=== PATIENT | male | born 1970 | race Hispanic/Latino ===

== ENCOUNTER 2020-01-01 13:50 | Emergency (ER) | payer OTHER, MEDICARE, SELFPAY ==
[2020-01-01 13:55] VITALS: BP 136/95; PULSE 97; RESP 18; TEMP 36.9; O2SAT 98
[2020-01-01 14:09] LABS: Glucose Point of Care 239 (65-105)
--- NOTE | 2020-01-01 14:35 | ED.RECABL ---
HPI - Recheck/Abnormal Lab/Rx General Chief Complaint: Recheck/Abnormal Lab/Rx Stated Complaint: high blood sugar Time Seen by Provider: 01/01/20 13:59 History of Present Illness HPI narrative: Patient is a 49-year-old male who presents the ER with concerns for hyperglycemia. Reports he took his blood sugar reading this morning and it was greater than 300. This is the first time he is taken a blood glucose level in the last 2 months. Reports she is noted she has been drinking more Crystal light than typical and was concerned maybe his blood sugars were high. He states he has an artificial sweetener in it. Reports he has been urinating more frequently. No additional complaints. Has not followed up with his primary care doctor due to recent COVID pandemic. Related Data Home Medications Medication Instructions Recorded Confirmed carbamazepine 200 mg PO Q12H 06/20/19 Allergies Allergy/AdvReac Type Severity Reaction Status Date / Time tadalafil Allergy Unknown Other Verified 01/01/20 13:58 Review of Systems Review of Systems: All systems reviewed & are unremarkable except as noted in HPI and below Genitourinary: Genitourinary: Reports urinary frequency PMFSH Past Medical History Medical History (Updated 01/01/20 @ 15:29 by Edward Coronado MD) Diabetes Dyslipidemia Epilepsy GERD (gastroesophageal reflux disease) Hypertension Hypothyroidism Pacemaker Surgical History Surgical History (Updated 06/20/19 @ 18:34 by Dionna Shi PA-C) S/P right rotator cuff repair Family History Family History (Updated 01/13/19 @ 14:45 by DOCTOR UNKNOWN) Mother Family history of diabetes mellitus in first degree relative Diabetes mellitus Sibling Diabetes mellitus Other Hypertension Social History Social History Smoking status: Never smoker Alcohol intake: current Gender identity (if verbalized by the patient): Male Exam Narrative: Exam Narrative: GENERAL: Well-appearing, obese, and in no acute distress. HEAD: Normocephalic, atraumatic. CHEST: Clear to auscultation. No respiratory distress. HEART: Regular rate and rhythm. Normal peripheral pulses. ABDOMEN: Soft, nontender, nondistended. EXTREMITIES: Normal range of motion. No edema. SKIN: Warm, dry, no rash. NEURO: N Alert and oriented x3. PSYCH: Normal mood and affect. Course Course Emergency Course: Patient informed of results. Discussed case with Dr. Hurtado. Would recommend increasing patient's metformin by 500 mg for the next couple of days and then increasing it to 1000 mg twice daily after that. I discussed the plan with the patient has verbalized understanding. Vital Signs Vital signs: Vital Signs Temperature 98.5 F 01/01/20 13:55 Pulse Rate 97 01/01/20 13:55 Respiratory Rate 18 01/01/20 13:55 Blood Pressure 136/95 H 01/01/20 13:55 Pulse Oximetry 98 01/01/20 13:55 Temperature 98.5 F 01/01/20 13:55 Pulse Rate 97 01/01/20 13:55 Respiratory Rate 18 01/01/20 13:55 Blood Pressure 136/95 H 01/01/20 13:55 Pulse Oximetry 98 01/01/20 13:55 MDM - Recheck/Abnormal Lab/Rx Lab Data Result diagrams: 01/01/20 14:35 01/01/20 14:35 Labs: Lab Results 01/01/20 01/01/20 01/01/20 Range/Units 14:08 14:35 14:35 WBC 6.8 (4.5-10.0) K/mm3 RBC 4.32 L (4.6-6.20) M/mm3 Hgb 14.1 (14.0-18.0) g/dL Hct 39.4 L (42.0-52.0) % MCV 91.2 (80-100) fl MCH 32.6 (26-34) pg MCHC 35.8 (32-36) g/dl RDW 11.9 (11.5-14.5) % Plt Count 317 (150-375) k/mm3 MPV 8.9 (7.4-10.4) fl Immature Gran % (Auto) 0.7 H (0-0.5) % Neut % (Auto) 61.6 (45.5-73.1) % Lymph % (Auto) 27.3 (18.3-44.2) % Kinney % (Auto) 9.0 H (2.6-8.5) % Eos % (Auto) 1.0 (0-4.4) % Baso % (Auto) 0.4 (0.2-1.2) % Lymph # (Auto) 1.84 (0.9-3.2) K/mm3 Kinney # (Auto) 0.6 (0.1-0.6) K/mm3 Eos # (Auto) 0.1 (0-0.3) K/mm3 Baso # (Auto) 0.0 (
[2020-01-01 14:45] LABS: Basophils Percent Auto 0.4 % (0.2-1.2); Eosinophils Absolute Auto 0.1 K/mm3 (0-0.3); Hematocrit 39.4 % (42.0-52.0); Hemoglobin 14.1 g/dL (14.0-18.0); Immature Granulocyte Absolute 0.05 K/mm3 (0.00-0.031); Immature Granulocyte Percent A 0.7 % (0-0.5); Lymphocytes Absolute Auto 1.84 K/mm3 (0.9-3.2); Lymphocytes Percent Auto 27.3 % (18.3-44.2); Mean Corpuscular HGB Conc 35.8 g/dl (32-36); Mean Corpuscular Hemoglobin 32.6 pg (26-34); Mean Corpuscular Volume 91.2 fl (80-100); Mean Platelet Volume 8.9 fl (7.4-10.4); Monocytes Absolute Auto 0.6 K/mm3 (0.1-0.6); Neutrophils Absolute Auto 4.2 K/mm3 (1.3-6.7); Neutrophils Percent Auto 61.6 % (45.5-73.1); Platelet Count Result 317 k/mm3 (150-375); Red Blood Count 4.32 M/mm3 (4.6-6.20); Red Cell Distribution Width 11.9 % (11.5-14.5); White Blood Count 6.8 K/mm3 (4.5-10.0)
[2020-01-01 14:58] LABS: Blood Urea Nitrogen 20 mg/dL (9-20); Calcium 9.5 mg/dL (8.4-10.2); Carbon Dioxide 26 mmol/L (22-30); Chloride 101 mmol/L (98-107); Estimated CRCL calculation 141 ml/min; Estimated Glomerular Filt Rate > 60; Glucose 280 mg/dL (75-110); Sodium 136 mmol/L (137-145)
[2020-01-01 15:09] LABS: Hemoglobin A1C 9.9 % (<5.7)
[2020-01-01 15:56] VITALS: BP 139/87; PULSE 93; RESP 16; TEMP 36.4; O2SAT 99
== END 2020-01-01 15:57 | disposition home or self-care (01) ==
PROVIDERS: Emergency Provider Emergency Medicine; PCP Family Medicine
DX: E11.65 Type 2 diabetes mellitus with hyperglycemia (principal); G40.909 Epilepsy, unspecified, not intractable, without status epilepticus; E78.5 Hyperlipidemia, unspecified; K21.9 Gastro-esophageal reflux disease without esophagitis; I10 Essential (primary) hypertension; E03.9 Hypothyroidism, unspecified; Z95.0 Presence of cardiac pacemaker; Z79.84 Long term (current) use of oral hypoglycemic drugs
CPT/HCPCS: 36415; 80048; 82948; 83036; 85025; 99283

== ENCOUNTER 2020-05-25 09:30 | Outpatient (RCR) | payer OTHER, MEDICARE, SELFPAY ==
[2020-03-18 15:08] VITALS: BMI 37.5
[2020-05-25 09:34] VITALS: BMI 37.3
[2020-05-25 09:35] VITALS: BMI 37.3
== END 2020-06-07 09:38 | disposition home or self-care (01) ==
LOC: ANHDMC 09:30
PROVIDERS: PCP Family Medicine; Visit Provider Family Medicine
DX: E11.65 Type 2 diabetes mellitus with hyperglycemia (principal); Z71.3 Dietary counseling and surveillance; Z71.89 Other specified counseling
CPT/HCPCS: 97802; 97803; G0108

== ENCOUNTER 2020-08-12 11:00 | Outpatient (RCR) | payer OTHER, MEDICARE, SELFPAY ==
[2020-07-01 10:59] VITALS: BMI 37.8
[2020-07-01 11:00] VITALS: BMI 37.8
== END 2020-09-20 09:13 | disposition home or self-care (01) ==
LOC: ANHDMC 11:00
PROVIDERS: PCP Family Medicine; Visit Provider Family Medicine
DX: E11.65 Type 2 diabetes mellitus with hyperglycemia (principal); Z71.3 Dietary counseling and surveillance; Z71.89 Other specified counseling
CPT/HCPCS: 97803; G0108

== ENCOUNTER → 2020-09-14 00:19 | Outpatient (CLI) | payer OTHER, MEDICARE, SELFPAY ==
[2020-09-14 21:18] LABS: SARS-CoV-2 RNA PCR Negative
== END ==
PROVIDERS: PCP Family Medicine; Visit Provider Internal Medicine Gastroenterology
DX: Z01.812 Encounter for preprocedural laboratory examination (principal); Z20.822 Contact with and (suspected) exposure to COVID-19
CPT/HCPCS: C9803; U0003; U0005

== ENCOUNTER 2020-09-17 00:54 | Day surgery (SDC) | payer OTHER, MEDICARE, SELFPAY ==
[2020-08-26 15:39] VITALS: BMI 37.3
[2020-09-17 06:47] VITALS: BP 145/98; PULSE 87; RESP 18; TEMP 36.7; O2SAT 96
[2020-09-17] MEDS: LACTATED RINGERS 1,000 ML 150 ML IV CONT (07:03)
[2020-09-17 07:09] LABS: Glucose Point of Care 118 (65-105)
--- NOTE | 2020-09-17 08:04 | WPDANESEPPF ---
Anes - Initial Pre Proc Eval Procedure: Operation Date: 09/17/20 08:00 Proposed Procedures p Screening Colonoscopy - Suleiman Gregorio MD Date/Time: 09/17/20 08:04 Surgeon: Suleiman Gregorio MD Pre Op Diagnosis: Neoplasm Screening Patient Data Age: 50 Gender: M Height: 5 ft 10 in Weight: 119 kg Last Vital Signs Temp 36.7 C 09/17/20 06:47 Pulse 87 09/17/20 06:47 Resp 18 09/17/20 06:47 BP 145/98 H 09/17/20 06:47 Pulse Ox 96 09/17/20 06:47 Allergies Allergy/AdvReac Type Severity Reaction Status Date / Time No Known Allergies Allergy Verified 09/17/20 06:46 Home Medications Medication Instructions Recorded Confirmed Type carbamazepine 600 mg PO Q12H 06/20/19 08/26/20 History metformin 500 mg tablet 1,000 mg PO BID #120 tablet 01/14/20 08/26/20 Rx fenofibrate 160 mg tablet See Rx Instructions .ROUTE 04/12/20 09/17/20 Rx .COMPLEX #90 tablet losartan 100 mg tablet See Rx Instructions .ROUTE 04/12/20 09/17/20 Rx .COMPLEX #90 tablet omeprazole 40 mg capsule,delayed See Rx Instructions .ROUTE 04/12/20 09/17/20 Rx release .COMPLEX #90 cap blood sugar diagnostic #100 each 04/21/20 08/19/20 Rx dapagliflozin 10 mg tablet 10 mg PO QAM #30 tablet 06/23/20 09/17/20 Rx levothyroxine 88 mcg tablet 88 mcg PO DAILY #90 tablet 08/09/20 08/26/20 Rx hydrochlorothiazide 12.5 mg tablet 12.5 mg PO DAILY #30 tablet 08/12/20 09/17/20 Rx sildenafil 100 mg tablet 100 mg PO DAILY PRN #30 tablet 08/12/20 08/26/20 Rx sodium,potassium,mag sulfates See Rx Instructions .ROUTE 08/25/20 Rx [Suprep Bowel Prep Kit] .COMPLEX #1 ml lancets 33 gauge #100 each 09/02/20 Rx atorvastatin [Lipitor] 10 mg PO HS 09/17/20 08/26/20 History Laboratory Tests 09/17/20 07:03 POC Capillary Glucose 118 mg/dl H mg/dl (65-105) Patient hx anesthesia problems: none Family hx anesthesia problems: none PMFSH Past Medical History Medical History Diabetes Dyslipidemia Epilepsy GERD (gastroesophageal reflux disease) Hypertension Hypothyroidism Pacemaker Surgical History Surgical History S/P right rotator cuff repair Family History Family History Mother Family history of diabetes mellitus in first degree relative Diabetes mellitus Sibling Diabetes mellitus Other Hypertension Social History Social History Social History: Smoking status: Never smoker Second hand tobacco smoke exposure: No Alcohol intake: never Substance use: never Substance use type: does not use Living arrangements: with family Gender identity (if verbalized by the patient): Male Spiritual care concerns: No Anes - Eval Final PreProcedure Day of Procedure 09/17/20 08:04 Patient weight: obese Heart: regular rate and rhythm Lungs: clear to auscultation Airway: Mallampati scale class II Neurological: alert and oriented Last oral intake: >/= 8 hours ASA classification: III Emergent: no Anesthetic plan: proceed Anesthesia type and monitoring: general GIVS and standard monitoring Informed Consent: The patient's anesthetic plan and its attendant risks and benefits were discussed with the patient/family/POA. Questions were solicited and answers provided to the satisfaction of the patient/family/POA.
--- NOTE | 2020-09-17 08:27 | PM.HPGS ---
History of Present Illness History of Present Illness Consent: Risks, benefits, and alternatives have been discussed and questions answered. Patient agrees to proceed with procedure. Chief complaint: Neoplasm Screening Narrative: Navdeep Guzman is a 50 year old male here for first screening colonoscopy Review of Systems Constitutional: Constitutional: Denies headache(s) and Denies weakness Eyes: Eyes: Denies blurry vision ENT: Reports Normal hearing present, Denies headache(s) and Denies neck pain Cardiovascular: Cardiovascular: Denies chest pain and Denies dyspnea Respiratory: Respiratory: Denies dyspnea Gastrointestinal: Gastrointestinal: Reports no additional gastrointestinal complaints Genitourinary: Genitourinary: Denies dysuria Musculoskeletal: Musculoskeletal: Denies neck pain Integumentary/Breasts: Skin/Breast: Denies dry skin Neurologic: Reports Normal hearing present, Denies headache(s) and Denies weakness Psychiatric: Psychiatric: Denies anxiety Endocrine: Endocrine: Denies change in body appearance Hematologic/Lymphatic: Hematologic/Lymphatic: Denies easy bleeding Allergic/Immunologic: Allergic/Immunologic: Denies urticaria PMFSH Past Medical History Medical History Diabetes Dyslipidemia Epilepsy GERD (gastroesophageal reflux disease) Hypertension Hypothyroidism Pacemaker Surgical History Surgical History S/P right rotator cuff repair Family History Family History Mother Family history of diabetes mellitus in first degree relative Diabetes mellitus Sibling Diabetes mellitus Other Hypertension Social History Social History Social History: Smoking status: Never smoker Second hand tobacco smoke exposure: No Alcohol intake: never Substance use: never Substance use type: does not use Living arrangements: with family Gender identity (if verbalized by the patient): Male Spiritual care concerns: No Meds Home Medications and Allergies Home Medications Medication Instructions Recorded Confirmed Type carbamazepine 600 mg PO Q12H 06/20/19 08/26/20 History metformin 500 mg tablet 1,000 mg PO BID #120 tablet 01/14/20 08/26/20 Rx fenofibrate 160 mg tablet See Rx Instructions .ROUTE 04/12/20 09/17/20 Rx .COMPLEX #90 tablet losartan 100 mg tablet See Rx Instructions .ROUTE 04/12/20 09/17/20 Rx .COMPLEX #90 tablet omeprazole 40 mg capsule,delayed See Rx Instructions .ROUTE 04/12/20 09/17/20 Rx release .COMPLEX #90 cap blood sugar diagnostic #100 each 04/21/20 08/19/20 Rx dapagliflozin 10 mg tablet 10 mg PO QAM #30 tablet 06/23/20 09/17/20 Rx levothyroxine 88 mcg tablet 88 mcg PO DAILY #90 tablet 08/09/20 08/26/20 Rx hydrochlorothiazide 12.5 mg tablet 12.5 mg PO DAILY #30 tablet 08/12/20 09/17/20 Rx sildenafil 100 mg tablet 100 mg PO DAILY PRN #30 tablet 08/12/20 08/26/20 Rx sodium,potassium,mag sulfates See Rx Instructions .ROUTE 08/25/20 Rx [Suprep Bowel Prep Kit] .COMPLEX #1 ml lancets 33 gauge #100 each 09/02/20 Rx atorvastatin [Lipitor] 10 mg PO HS 09/17/20 08/26/20 History Allergies Allergy/AdvReac Type Severity Reaction Status Date / Time No Known Allergies Allergy Verified 09/17/20 06:46 Vital Signs Vital Signs - 24 hr 09/17/20 06:47 Temperature 98.1 F Pulse Rate 87 Respiratory Rate 18 Blood Pressure 145/98 H Pulse Oximetry 96 Exam Const: General: comfortable and no acute distress HENMT: General nose exam: Normal nares present Eyes: General: appearance normal, both eyes and all related structures Neck: Neck: no JVD Resp: Auscultation: clear to auscultation bilaterally Cardio: Rate: regular rate Rhythm: regular rhythm GI: Inspection: non-distended GI Palp: Yes Soft to palpation S
[2020-09-17 08:46] VITALS: BP 151/86; PULSE 93; RESP 20; O2SAT 92
[2020-09-17 08:56] VITALS: BP 131/85; PULSE 89; RESP 25; O2SAT 95
[2020-09-17 09:06] VITALS: BP 136/87; PULSE 91; RESP 18; O2SAT 96
== END 2020-09-17 09:47 | disposition home or self-care (01) ==
PROVIDERS: PCP Family Medicine; Visit Provider Internal Medicine Gastroenterology
PROC: 0DJD8ZZ Inspection of Lower Intestinal Tract, Via Natural or Artificial Opening Endoscopic (ICD-10-PCS; CPT 45378; principal; 2020-09-17 08:00)
DX: Z12.11 Encounter for screening for malignant neoplasm of colon (principal); D12.4 Benign neoplasm of descending colon; I10 Essential (primary) hypertension; E11.9 Type 2 diabetes mellitus without complications; E78.5 Hyperlipidemia, unspecified; E03.9 Hypothyroidism, unspecified; K64.8 Other hemorrhoids; K21.9 Gastro-esophageal reflux disease without esophagitis; G40.909 Epilepsy, unspecified, not intractable, without status epilepticus; Z95.0 Presence of cardiac pacemaker
CPT/HCPCS: 45380; 82948; 88305; C9803; J2704; J7120; U0003; U0005

== ENCOUNTER 2021-05-11 14:14 | Outpatient (CLI) | payer OTHER, MEDICARE, SELFPAY | END 2021-05-11 14:15 | disposition home or self-care (01) | LOC: ANHAUDIO 14:16 | PROVIDERS: PCP Family Medicine; Visit Provider Family Medicine | DX: H91.90 Unspecified hearing loss, unspecified ear (principal) | CPT/HCPCS: 99199 ==

== ENCOUNTER 2021-07-27 16:09 | Outpatient (CLI) | payer OTHER, MEDICARE, SELFPAY ==
--- NOTE | ~2021-07-27 | CT_ITS ---
EXAMINATION: CT brain wo con DATE: 07/27/2021 16:29 INDICATION: Dizziness. Unsteady gait. Weakness. TECHNIQUE: Computed tomography (CT) of the head was performed without intravenous contrast. Sagittal and coronal reconstructions were performed. The mA was adjusted according to patient size. Iterative reconstruction technique was employed. The dose-length product was 681.00 mGy-cm. COMPARISON: None FINDINGS: No acute intracranial hemorrhage, acute infarction or abnormal extra axial fluid collection. Ventricl es are normal and symmetric. No mass/mass effect. Mild mucosal thickening the right maxillary sinus. The orbits and mastoid air cells are normal. IMPRESSION: 1. Normal brain. No acute intracranial process. Reviewed, dictated and finalized at location A. CER MACHINE
== END 2021-07-27 16:10 | disposition home or self-care (01) ==
LOC: ANHIMG 16:10
PROVIDERS: PCP Family Medicine; Visit Provider Nurse Practitioner Family
DX: R26.81 Unsteadiness on feet (principal); R42 Dizziness and giddiness; R53.1 Weakness
CPT/HCPCS: 70450

== ENCOUNTER → 2022-06-19 13:13 | Outpatient (CLI) | payer OTHER, MEDICARE, SELFPAY ==
--- NOTE | ~2022-06-19 | XR_ITS ---
XR hip RT 2V w AP pelvis 06/19/2022 13:29 Indication: Right hip pain for 2-3 months Procedure: AP pelvis and 2 views right hip Comparison: No prior studies for comparison. Findings: There are surgical changes at the lower lumbar spine. Pelvic rings are intact. No acute fra cture or traumatic malalignment. There is anatomic alignment of the hips. No significant joint space narrowing. Impression: 1: No acute abnormality of the right hip. Reviewed, dictated and finalized at location B. S SCIENCE ENGINEER Impression: 1: No acute abnormality of the right hip.
== END ==
PROVIDERS: PCP Family Medicine; Visit Provider Family Medicine
DX: M25.551 Pain in right hip (principal)
CPT/HCPCS: 73502

== ENCOUNTER 2022-07-24 10:26 | Emergency (ER) | payer OTHER, MEDICARE, SELFPAY ==
--- NOTE | ~2022-07-24 | US_ITS ---
EXAMINATION: US scrotum doppler DATE: 07/24/2022 12:23 INDICATION: Right testicular pain and swelling TECHNIQUE: Testicular sonogram utilizing grayscale and Doppler COMPARISON: None. FINDINGS: The right testis measures 3.5 x 1.9 x 2.3 cm. The left testis measures 3.9 x 2.0 x 2.2 cm. Symmetric normal grayscale appearance to both testes. There is normal vascular flow to both testes. The right e pididymis is normal with normal vascular flow. The left epididymis is normal with normal vascular rolanda w. There is no varicocele or hydrocele. IMPRESSION: 1. Normal scrotal ultrasound. Reviewed, dictated and finalized at location A. DATION ARCHITECT
--- NOTE | ~2022-07-24 | CT_ITS ---
EXAMINATION: CT abdomen pelvis w con : 07/24/2022 13:03 INDICATION: Severe right inguinal pain TECHNIQUE: Computed tomography (CT) of the abdomen and pelvis was performed with 100 mL Omnipaque-350 intravenous contrast. Automated exposure control and iterative reconstruction technique were employe d. The dose-length product was 1595.63 mGy-cm. COMPARISON: None FINDINGS: Again seen is mild subpleural atelectasis/scarring at the dependent right lower lobe. Heart size is n ormal. Right atrial appendage and apex of the right ventricle. No pericardial or pleural effusion. Mi ld bilateral gynecomastia. Liver, gallbladder, spleen, pancreas, bilateral adrenal glands and right k idney are normal. 11 mm and 8 mm lesions, the former exophytic, the lower pole of the left kidney wit h greater than simple fluid attenuation which could represent either proteinaceous/hemorrhagic cysts or solid enhancing neoplasms. The former is without significant interval change since the prior study , the latter is increased in size from approximately 3 mm. There are few sigmoid diverticula without adjacent inflammatory change to suggest diverticulitis. Small bowel and appendix are normal. Small fa t-containing umbilical hernia. Asymmetric mild increased fat within the distal left inguinal canal wi thout definitive herniation at the internal os and this likely related to body habitus. No right ingu inal hernia. Bladder is normal. Prostate is unremarkable. Combined instrumented anterior and posterio r spinal fusion at L3-S1 with interbody bone graft cages and bilateral vertical nandini and pedicle screw fixations. Moderate disc height loss at L2-L3. There is hypertrophic and mild cystic changes along t he bilateral anterosuperior femoral head neck junctions which can be seen in the setting of cam-type femoral acetabular impingement. IMPRESSION: 1. No right inguinal hernia or acute intra-abdominal/pelvic process. 2. A couple small indeterminate lesions at the lower pole of the left kidney measuring 8 mm and 11 mm which corrects and proteinaceous/hemorrhagic cysts or solid enhancing neoplasm including renal cell carcinoma. Would recommend follow-up pre and postcontrast MRI or CT. 3. Small fat-containing umbilical hernia. Reviewed, dictated and finalized at location A. RVISOR PRE WAVE IMPRESSION: 1. No right inguinal hernia or acute intra-abdominal/pelvic process. 2. A couple small indeterminate lesions at the lower pole of the left kidney me asuring 8 mm and 11 mm which corrects and proteinaceous/hemorrhagic cysts or so lid enhancing neoplasm including renal cell carcinoma. Would recommend follow-u p pre and postcontrast MRI or CT. 3. Small fat-containing umbilical hernia.
[2022-07-24 10:30] VITALS: BP 163/88; PULSE 101; RESP 18; TEMP 36.4; O2SAT 97
--- NOTE | 2022-07-24 10:46 | ED.GENADULT ---
HPI - General Adult General Chief complaint: Unspecified Stated complaint: pain in groin Time Seen by Provider: 07/24/22 10:36 History of Present Illness HPI narrative: Patient is a 52-year-old male here for evaluation of right testicular pain over the past day. Patient states he will have waves of severe pain in his right testicle/groin. The pain is worse with certain positions and does ease up when he is at rest. denies nausea, vomiting, fevers, chills, palpated masses or rashes. Attempted Aleve yesterday without relief of his symptoms. Related Data Home Medications Medication Instructions Recorded Confirmed carbamazepine 200 mg tablet 600 mg PO Q12H 06/20/19 06/13/22 Allergies Allergy/AdvReac Type Severity Reaction Status Date / Time No Known Allergies Allergy Verified 06/13/22 10:11 Review of Systems Review of Systems: Gen.: Denies fevers or chills Eyes: Denies eye pain or visual change ENT: Denies congestion Respiratory: Denies shortness of breath or cough CV: Denies chest pain or palpitations GI: Denies abdominal pain nausea, emesis or diarrhea reports right testicle pain. Denies burning, urgency, frequency or hematuria Musculoskeletal: Denies back pain or muscle pain Neuro: Denies numbness, tingling, weakness or focal weakness Skin: Denies rash Except as documented, all other systems reviewed and negative [facility] Past Medical History Medical History (Updated 07/24/22 @ 13:59 by Dionna Vora PA-C) Diabetes Dyslipidemia Epilepsy GERD (gastroesophageal reflux disease) Hypertension Hypothyroidism Pacemaker Surgical History Surgical History S/P right rotator cuff repair Family History Family History Mother Family history of diabetes mellitus in first degree relative Diabetes mellitus Sibling Diabetes mellitus Other Hypertension Social History Social History Social History: Smoking status: Never smoker Second hand tobacco smoke exposure: No Alcohol intake: never Alcohol use details: occasionally Substance use: never Substance use type: does not use Gender identity (if verbalized by the patient): Male Sexual Orientation (if Verbalized by the Patient): Straight or Heterosexual Spiritual care concerns: No Exam Narrative: APPEARANCE: Well appearing, no pain in distress, well-nourished. Head: Normocephalic and atraumatic. EYES: PERRLA/EOMI, conjunctivae clear NOSE: No nasal drainage EARS: External ear normal in appearance THROAT: Oropharynx is clear. Mucous membranes are moist. NECK: Supple. No adenopathy, no masses. RESPIRATORY: Airway patent, respirations nonlabored. Clear to auscultation bilaterally, no rales, rhonchi, wheezing. CARDIOVASCULAR: Regular rate and rhythm without murmurs, rubs, or gallops. : Tender to palpation around right epididymis. No palpable masses. Normal external genitalia. No rashes to testicles or groin. ABDOMINAL: Normoactive bowel sounds. Soft, nontender, nondistended. No rebound tenderness or guarding. MUSCULOSKELETAL: Extremities are warm and well-perfused. Moves all extremities well. No edema. NEURO: Normal speech. No focal neurologic deficits. SKIN: Skin is warm and dry. No rashes. PSYCHIATRIC: Normal affect/mood. Course Vital Signs Vital signs: Vital Signs Temperature 97.6 F 07/24/22 10:30 Pulse Rate 101 H 07/24/22 10:30 Respiratory Rate 18 07/24/22 10:30 Blood Pressure 163/88 H 07/24/22 10:30 Pulse Oximetry 97 07/24/22 10:30 Oxygen Delivery Room Air 07/24/22 10:30 Temperature 97.6 F 07/24/22 10:30 Pulse Rate 94 07/24/22 13:12 Respiratory Rate 20 07/24/22 13:12 Blood Pressure 138/88 07/24/22 13:12 Pulse Oximetry 98 07/24/22 13:12 Oxygen Delivery Room Air 07/24/22 10:30 Medical Decisio
[2022-07-24] MEDS: KETOROLAC 15 MG/ML VIAL (*BKC) IV PUSH (11:37)
[2022-07-24 12:28] LABS: Basophils Percent Auto 0.4 % (0.2-1.2); Eosinophils Absolute Auto 0.1 K/mm3 (0-0.3); Eosinophils Percent Auto 1.1 % (0-4.4); Hematocrit 41.6 % (42.0-52.0); Hemoglobin 14.6 g/dL (14.0-18.0); Immature Granulocyte Absolute 0.06 K/mm3 (0.00-0.031); Immature Granulocyte Percent A 0.7 % (0-0.5); Lymphocytes Absolute Auto 2.41 K/mm3 (0.9-3.2); Lymphocytes Percent Auto 26.2 % (18.3-44.2); Mean Corpuscular HGB Conc 35.1 g/dl (32-36); Mean Corpuscular Hemoglobin 33.1 pg (26-34); Mean Corpuscular Volume 94.3 fl (80-100); Mean Platelet Volume 7.9 fl (7.4-10.4); Monocytes Absolute Auto 0.9 K/mm3 (0.1-0.6); Monocytes Percent Auto 9.7 % (2.6-8.5); Neutrophils Absolute Auto 5.7 K/mm3 (1.3-6.7); Neutrophils Percent Auto 61.9 % (45.5-73.1); Platelet Count Result 322 k/mm3 (150-375); Red Blood Count 4.41 M/mm3 (4.6-6.20); Red Cell Distribution Width 11.9 % (11.5-14.5); White Blood Count 9.2 K/mm3 (4.5-10.0)
[2022-07-24 12:38] LABS: Alanine Aminotransferase 36 U/L (6-50); Albumin Level 4.5 g/dL (3.5-5.1); Alkaline Phosphatase 109 U/L (38-126); Anion Gap 9 mmol/L (8-16); Aspartate Amino Transferase 36 U/L (17-59); Bilirubin,Total 0.4 mg/dL (0.2-1.3); Blood Urea Nitrogen 20 mg/dL (9-20); Calcium 8.9 mg/dL (8.4-10.2); Carbon Dioxide 26 mmol/L (22-30); Chloride 105 mmol/L (98-107); Estimated CRCL calculation 156 ml/min; Estimated Glomerular Filt Rate > 60; Glucose 99 mg/dL (65-110); Potassium 3.8 mmol/L (3.4-5.0); Sodium 140 mmol/L (137-145)
[2022-07-24] MEDS: MORPHINE SULFATE (*CRX) 4 MG/ML INJ IV PUSH (13:09)
[2022-07-24 13:12] VITALS: BP 138/88; PULSE 94; RESP 20; O2SAT 98
== END 2022-07-24 14:13 | disposition home or self-care (01) ==
PROVIDERS: Emergency Provider Physician Assistant; PCP Family Medicine
DX: R10.31 Right lower quadrant pain (principal); E11.9 Type 2 diabetes mellitus without complications; E78.5 Hyperlipidemia, unspecified; G40.909 Epilepsy, unspecified, not intractable, without status epilepticus; K21.9 Gastro-esophageal reflux disease without esophagitis; I10 Essential (primary) hypertension; E03.9 Hypothyroidism, unspecified; Z95.0 Presence of cardiac pacemaker; N28.9 Disorder of kidney and ureter, unspecified; K42.9 Umbilical hernia without obstruction or gangrene; Z79.82 Long term (current) use of aspirin; Z79.84 Long term (current) use of oral hypoglycemic drugs
CPT/HCPCS: 36415; 74177; 76870; 80053; 85025; 93976; 96374; 96375; 99284; J1885; J2270; Q9967

== ENCOUNTER 2022-08-02 06:36 | Outpatient (CLI) | payer OTHER, MEDICARE, SELFPAY ==
--- NOTE | ~2022-08-02 | CT_ITS ---
CT Abdomen with contrast. History: Left renal mass. Spiral CT of the abdomen was performed prior to and following administration of intravenous contrast. 100 cc of Omnipaque 350 was administered intravenously without complication. Dose reduction techniqu e was used on this scan by utilizing automated exposure control and iterative reconstruction techniqu e. The dose-length product (DLP) was 1914.58 mGy-cm. COMPARISON: 07/24/2022, 01/10/2019 Findings: Scans through the lung bases demonstrate mild atelectatic change. The liver, spleen, pancreas, gallbladder, adrenals and right kidney are within normal limits. Several subcentimeter left renal lesions are present, with apparent low density. No evidence of aortic aneur ysm. No lymphadenopathy is seen. Visualized bowel loops are unremarkable. No ascites. Impression: Low-density/nonenhancing left renal lesions, most compatible with benign findings. Reviewed, dictated and finalized at [facility]. TERIA FOOD SERVER Impression: Low-density/nonenhancing left renal lesions, most compatible with benign findin gs.
== END 2022-08-02 06:37 | disposition home or self-care (01) ==
LOC: ANHIMG 06:41
PROVIDERS: PCP Family Medicine; Visit Provider Physician Assistant
DX: N28.89 Other specified disorders of kidney and ureter (principal)
CPT/HCPCS: 74170; Q9967

== ENCOUNTER 2022-11-22 13:28 | Outpatient (CLI) | payer OTHER, MEDICARE, SELFPAY ==
--- NOTE | ~2022-11-22 | US_ITS ---
EXAMINATION: US carotid duplex BI DATE: 11/22/2022 14:23 INDICATION: Dysarthria and anarthria. TECHNIQUE: Grayscale, color Doppler, and pulsed Doppler images of the cervical carotid arteries were obtained. The degree of vessel stenosis is placed in one of the following categories: normal, <50%, 5 0-69%, >=70% but less than near-occlusion, near-occlusion, or total occlusion. Note that percent sten osis relative to normal distal artery lumen diameter is indirectly measured from velocity measurement s as described by Toño, et al. Radiology 2003; 229:340-346. COMPARISON: None. FINDINGS: RIGHT: The right common carotid artery (CCA) peak systolic velocity (PSV) is 95 cm/s. The right internal car otid artery (ICA) PSV is 66 cm/s. The right ICA end-diastolic velocity (EDV) is 25 cm/s. The right IC A/CCA PSV ratio is 0.7. Grayscale and color Doppler images yield an estimate of <50% diameter reducti on from plaque in the ICA. There is antegrade flow in the right vertebral artery. LEFT: The left CCA PSV is 102 cm/s. The left ICA PSV is 101 cm/s. The left ICA EDV is 12 cm/s. The left ICA /CCA PSV ratio is 1.0. Grayscale and color Doppler images yield an estimate of <50% diameter reductio n from plaque in the ICA. There is antegrade flow in the left vertebral artery. IMPRESSION: 1. <50% stenosis in the right internal carotid artery. 2. <50% stenosis in the left internal carotid artery. Reviewed, dictated and finalized at location A.
== END 2022-11-22 13:29 | disposition home or self-care (01) ==
PROVIDERS: PCP Family Medicine; Visit Provider Family Medicine
DX: I65.23 Occlusion and stenosis of bilateral carotid arteries (principal); R47.1 Dysarthria and anarthria; E11.69 Type 2 diabetes mellitus with other specified complication; I10 Essential (primary) hypertension
CPT/HCPCS: 93880

== ENCOUNTER → 2023-05-25 07:40 | Outpatient (CLI) | payer OTHER, MEDICARE, SELFPAY ==
--- NOTE | ~2023-05-25 | US_ITS ---
EXAMINATION: US soft tissue abdomen DATE: 05/25/2023 08:07 INDICATION: Follicular cyst of the skin and subcutaneous tissue. TECHNIQUE: Multiple grayscale and Doppler ultrasound images of the abdomen were obtained. COMPARISON: CT abdomen and pelvis 08/02/2022 FINDINGS: In the right upper quadrant of the abdomen, there is a 2.0 x 1.3 x 0.6 cm hypoechoic subcut aneous mass without internal vascular flow. IMPRESSION: 1. 2.0 cm hypoechoic subcutaneous mass in right upper quadrant of the abdomen, likely a sebaceous cys t. Reviewed, dictated and finalized at location E. IMPRESSION: 1. 2.0 cm hypoechoic subcutaneous mass in right upper quadrant of the abdomen, likely a sebaceous cyst.
== END ==
PROVIDERS: PCP Family Medicine; Visit Provider Physician Assistant
DX: L72.9 Follicular cyst of the skin and subcutaneous tissue, unspecified (principal); R19.01 Right upper quadrant abdominal swelling, mass and lump
CPT/HCPCS: 76705

== ENCOUNTER 2023-11-07 10:36 | Outpatient (CLI) | payer OTHER, MEDICARE, SELFPAY ==
--- NOTE | ~2023-11-07 | XR_ITS ---
EXAMINATION: XR elbow LT 2V DATE: 11/07/2023 10:48 INDICATION: Left elbow pain TECHNIQUE: Anteroposterior and lateral views of the left elbow were obtained. COMPARISON: None. FINDINGS: Alignment is normal. No fracture or joint effusion. Joint spaces are normal. Soft tissues are unremar kable. IMPRESSION: 1. . Negative left elbow radiographs. Reviewed, dictated and finalized at location B.
== END 2023-11-07 10:37 ==
LOC: MICIMG 10:38
PROVIDERS: PCP Family Medicine; Visit Provider Family Medicine
DX: M25.522 Pain in left elbow (principal)
CPT/HCPCS: 73070

== ENCOUNTER 2024-07-15 09:19 | Outpatient (CLI) | payer OTHER, MEDICARE, SELFPAY ==
--- NOTE | ~2024-07-15 | XR_ITS ---
[id number] 07/15/2024 09:41 Indication: Left knee pain Procedure: 2 views left knee Comparison: No prior studies for comparison. Findings: There is anatomic alignment. No fracture, subluxation or dislocation. No significant joint effusion. No foreign bodies. Impression: 1: No significant bone or joint abnormality. Reviewed, dictated and finalized at location B. DE WIRER Impression: 1: No significant bone or joint abnormality.
== END 2024-07-15 09:20 | disposition home or self-care (01) ==
PROVIDERS: PCP Family Medicine; Visit Provider Family Medicine
DX: M25.562 Pain in left knee (principal)
CPT/HCPCS: 73560

== ENCOUNTER 2024-12-02 08:10 | Outpatient (CLI) | payer MEDICARE, OTHER, SELFPAY ==
--- NOTE | ~2024-12-02 | XR_ITS ---
EXAMINATION: XR fl inj knee LT for MR/CT DATE: 12/02/2024 09:20 INDICATION: Left knee pain TECHNIQUE: A time-out was performed to verify the patient's name, date of , and procedure to b e performed. The procedure including the risks, benefits, and alternatives was discussed with the pat ient. Risks discussed included bleeding and infection. The patient understood the risks and agreed to proceed. The skin overlying the left knee joint was prepped and draped in usual sterile fashion. A nesthetic was administered with 1% lidocaine subcutaneously. A 22 G needle was advanced under fluoro scopic guidance into the joint. 44 mL of a 2:3:5 mixture of 1% lidocaine:Omnipaque-240: Sterile salin e was injected into the knee joint with intra-articular demonstration confirmed with intermittent flu oroscopy. The needle was removed and the entry site was cleaned and dressed. There were no immediate complications. Fluoroscopy exposure time was 0.4 minutes. The total number of images was 9. Total DA P was 0.6 Gycm^2. FINDINGS: Real-time fluoroscopy demonstrates the needle in the left knee joint. Patient's pain prior to procedure:02/05. Patient's pain following the procedure: 12/06. IMPRESSION: 1. Successful left knee joint injection of iodinated contrast mixture for subsequent CT arthrogram wh ich will be dictated separately. Reviewed, dictated and finalized at location A. IMPRESSION: 1. Successful left knee joint injection of iodinated contrast mixture for subse quent CT arthrogram which will be dictated separately.
--- NOTE | ~2024-12-02 | CT_ITS ---
CT OF left knee EXAMINATION: CT knee LT w con DATE: 12/02/2024 09:16 INDICATION: Left knee pain TECHNIQUE: Computed tomography (CT) of the left knee was performed following the injection of a 2:3:5 mixture of 1% lidocaine, Omnipaque 240, and sterile saline arthrographic contrast. Automated exposur e control and iterative reconstruction technique were employed. The dose-length product was 601.77 mG y-cm. COMPARISON: Fluoroscopy left knee, same date; x-ray left knee 09/04/2024, images only, 07/15/2024 FINDINGS: Limitations: None Bones: The included osseous structures are within normal limits. There are no erosive or destructive bony lesions. Mild medial and lateral joint space narrowing. Soft Tissues: Diffuse medial compartment cartilage thinning with partial thickness cartilage defects along the weightbearing surface of the MFC. Medial meniscal apical fraying. Small apical tear at the posterior horn of the medial meniscus. Mild diffuse cartilage thinning over the LFC. Lateral meniscal apical fraying. Full-thickness cartilage fissure over the median ridge of the patella. The collatera l ligaments appear to be intact. The flexor and extensor tendons appear to be intact. Fluid: Good arthrographic contrast filling in the joint space. No loose bodies detected. IMPRESSION: Small apical tear of the posterior horn, medial meniscus. Apical meniscal fraying of the medial and lateral menisci. Partial-thickness cartilage defect over the MFC. Full-thickness cartilage fissure over the median rid ge of the patella. Reviewed, dictated and finalized at location K. IMPRESSION: Small apical tear of the posterior horn, medial meniscus. Apical meniscal fraying of the medial and lateral menisci. Partial-thickness cartilage defect over the MFC. Full-thickness cartilage fissu re over the median ridge of the patella.
--- OUTSIDE RECORDS SUMMARY | 2024-12-02 08:21 | XMS_ITS | Continuity of Care Document ---
Author Organization [facility] Address [address] [place] [address] Phone Care Team Providers Care Retail Advertising Executive Name Role Phone Matty Seth MD Unavailable Unavailable Procedures Procedure Date Rating Letter Office/outpatient visit,est, mod 2009 Supplemental Report Office/outpatient visit,est, mod 2009 Supplemental Report Office/outpatient visit,est, mod 2009 Supplemental Report Postop followup visit X-ray exam of shoulder, complete 2009 Supplemental Report Postop followup visit Supplemental Report Postop followup visit Drain/inject major jointor bursa 2009 Depo Medrol Methylprednisolone 40 MG inj Supplemental Report Postop followup visit Supplemental Report Arthscpy shldr decompression Arthscpy shldr, debridement limited Office/outpatient visit,est, mod 2009 Supplemental Report Office/outpatient visit,est, mod 2008 Supplemental Report Office consultation, moderate Drain/inject major jointor bursa 2008 Depo Medrol Methylprednisolone 40 MG inj X-ray exam of shoulder, complete 2008 Advance Directives Directive Yes / No Effective Date File Name No Information Encounters Encounter Description Practice Location Reason(s) For Visit Diagnoses Date Provider Providers Copied on Encounter Rating Letter [facility], [address] [place] [address] [address], [place], [place], [id number], [place] tel:[phone] [facility] No Information 2 2-201 0 Seth Matty. [address] [address], [place], [place], [id number] , [place]. tel: [phone] Office/outpat ient visit,est, [facility], [address] [address], [place], [place], [id number], [place] tel:[phone] [facility] No Information 0-201 0 Seth Matty. [address] [facility] [address], [place], [place], [id number] , [place]. tel: [phone] Office/outpat ient visit,est, [facility], [address] [address], [place], [place], [id number], [place] tel:[phone] [facility] No Information 4-201 0 Rolo Starr. [address] [address], [place], [place], [id number] , [place]. tel: [phone] Office/outpat ient visit,est, [facility], [address] [address], [place], [place], [id number], [place] tel:[phone] [facility] No Information Oct-3 0-201 0 Rolo Starr. [address] [address], [place], [place], [id number] , [place]. tel: [phone] [facility], [address], [id number], [place] tel:[phone] [facility] No Information Oct-0 1-201 0 Rolo Starr. [address] [address], [place], [place], [id number] , [place]. tel: [phone] [facility], [address], [id number], [place] tel:[phone] [facility] No Information 1-201 0 Rolo Starr. [address] [address], [place], [place], [id number] , [place]. tel: [phone] [facility], [address] [place] [address], [id number], [place] tel:[phone] [facility] No Information 0 Rolo Starr. [address] [facility] [address], [place], [place], [id number] , [place]. tel: [phone] [facility], [address] [place] [address], [id number], [place] tel:[phone] [facility] No Information 0 Rolo Starr. [address] [place] [address], [place], [place], [id number] , [place]. tel: [phone] [facility], [address] [place] [address], [id number], [place] tel:[phone] [place] [address] No Information 0 Rolo Starr. [address] [address], [place], [place], [id number] , [place]. tel: [phone] Office/outpat ient visit,est, [facility], [address] [place] [address], [id number], [place] tel:[phone] [facility] No Information 0 Rolo Starr. [address] [address], [place], [place], [id number] , [place]. tel: [phone] Office/outpat ient visit,est, [facility], [address] [place] [address], [id number], [place] tel:[phone] [facility] No Information 9 Rolo Starr. [address] [place] [address], [address], [id number] , [place]. tel: [phone] Office consultation, [facility], [address] [place] [address], [id number], tel:[phone] [facility] No Information 9 Rolo Starr. [address] [facility], [address], [place], [place], [id number] , [place]. tel: [phone] Family History Family Member Type Diagnosis Age At Onset No Information Payers Payer name Insurance type Covered republican ID Authoriza tioscar(s) [id number] [id number] Social History Type Description Quantity Date Captured Comments Sex Male Smoking Status No Information Chief Complaint And Reason For Visit No Information Reason For Referral Reason For Referral No Information History Of Present Illness Encounter Date Complaint History Of Prese nt Illness No Information Functional Status Date Functional Assessmen t No Information Instructions Date Instruction Additional Infor mation No Information Assessments Type Assessment Date No Information Patient Care Teams Name Effective Dates (start - stop) Status Members No Information
--- OUTSIDE RECORDS SUMMARY | 2024-12-02 08:21 | XMS_ITS | Clinical Summary ---
Author Organization [facility] Address [address] [place] [address] Care Team Providers Care Coil Winder Repair Name Role Phone Unavailable Primary Care Provider Unavailabl e Social History Tobacco Use Types Packs/Day Years Used Date Smoking Tobacco: Never Assessed Sex and Gender Information Value Date Recorded Sex Assigned at Not on file Legal Sex Male 7:35 PM CDT Gender Identity Not on file Sexual Orientation Not on file Plan of Treatment Health Maintenance Due Date Last Done Comments Colorectal Cancer Screening Colonoscopy (10 Years) 1970 Annual Physical 1973 Hepatitis C 1988 DTaP, Tdap and Td Vaccines ( 1 - Tdap) 1989 Hepatitis B Vaccines (1 of 3 - 19+ 3-dose series) 1989 Pneumococcal Vaccine: 50+ Ye ars (1 of 1 - PCV) 2020 Zoster Vaccines (1 of 2) 2020 COVID-19 Vaccine (2023-2 5 season) 2024 Meningococcal B Vaccine Aged Out No l onger eligible based on patient's age to complete this topic Meningococcal Vaccine Aged Out No pelon annabel eligible based on patient's age to complete this topic RSV Immunizations Under 20 Months Aged Out No longer eligible based on patient's age to complete this topic
--- OUTSIDE RECORDS SUMMARY | 2024-12-02 08:21 | XMS_ITS | Continuity of Care Document ---
Author Organization [facility] Address [address] [place] [address] Phone Care Team Providers Care Program/Music Director Name Role Phone Gabe Solorzano Unavailable Unavailable Advance Directives Directive Yes / No Effective Date File Name No Information Encounters Encounter Description Practice Location Reason(s) For Visit Diagnoses Date Provider Providers Copied on Encounter [facility], [address], [place], [place], [id number], [place] tel:[phone] [facility] No Information Dec-0 7-200 1 Doisy Edward. [address] , [address], [place], [address], [place]. tel:[phone] Referring Provider: Juan Francisco Juarez, [address] , [place], [address]. tel:[phone] Family History Family Member Type Diagnosis Age At Onset No Information Payers Payer name Insurance type Covered democrat ID Authoriza tion(s) No Information Social History Type Description Quantity Date Captured [...]
== END 2024-12-02 08:11 | disposition home or self-care (01) ==
PROVIDERS: PCP Family Medicine; Visit Provider Orthopaedic Surgery
DX: M25.562 Pain in left knee (principal)
CPT/HCPCS: 20610; 73701; 77002; Q9966

== ENCOUNTER 2025-01-28 09:20 | Outpatient (CLI) | payer OTHER, MEDICARE, SELFPAY ==
--- NOTE | 2025-01-28 09:31 | ECG_ITS ---
Test Date: 2025-01-28 09:47:05 Measurements Intervals [place] Rate: 86 P: 6 MO: 169 QRS: -27 QRSD: 110 T: 25 QT: 329 QTc: 395 Interpretive Statements SINUS RHYTHM BORDERLINE LEFT AXIS DEVIATION [QRS AXIS < -20] MINIMAL VOLTAGE CRITERIA FOR LVH, CONSIDER NORMAL VARIANT [MEETS CRITERIA IN ONE OF: R(aVL), S(V1), R(V5), R(V5/V6)+S(V1)] BORDERLINE ECG WARNING: DATA QUALITY MAY AFFECT INTERPRETATION No previous ECG available for comparison Electronically Signed On 01-28-2025 12:53:48 CDT by Alvin Antoine M.D.
[2025-01-28 10:13] LABS: Anion Gap 12 mmol/L (4-12); Blood Urea Nitrogen 17 mg/dL (9-20); Calcium 9.4 mg/dL (8.4-10.2); Carbon Dioxide 27 mmol/L (22-30); Chloride 102 mmol/L (98-107); Estimated Glomerular Filt Rate > 60; Glucose 111 mg/dL (65-110); Potassium 4.0 mmol/L (3.4-5.0); Sodium 141 mmol/L (137-145)
== END 2025-01-28 09:21 | disposition home or self-care (01) ==
LOC: ANHSURGERY 09:25
PROVIDERS: Anesthesiology; PCP Family Medicine; Visit Provider Orthopaedic Surgery
DX: Z01.818 Encounter for other preprocedural examination (principal); E11.9 Type 2 diabetes mellitus without complications; I10 Essential (primary) hypertension
CPT/HCPCS: 36415; 80048; 93005

== ENCOUNTER 2025-02-03 02:14 | Day surgery (SDC) | payer OTHER, MEDICARE, SELFPAY ==
[2025-01-27 09:47] VITALS: BMI 37.0
--- NOTE | 2025-01-27 10:08 | PC.NURSE ---
Report to the Outpatient Waiting Room, entrance under the green pavilion located off [facility], at time _09:00am on date _ Sunday02/03/25 . Planned Procedure Time: _11:00am .? Time changes happen often and if your time is changed the preop area will call you the afternoon before. - You and your visitor will be asked to self-screen and do not enter if you have any COVID symptoms. Please call surgeon if you need to reschedule. - A mask is optional within the hospital at this time. Patients may have clear liquids (water, carbonated beverages, clear teas, apple juice) until 3 hours prior to surgery (08:00am) with a maximum of 20 ounces. - No food from midnight until time of surgery and no smoking, or chewing tobacco (or any form of nicotine). No chewing gum, candy or mints. Take only the following medications with a SIP of water on the morning of surgery: __CARBAMAZEPINE; LEVOTHYROXINE DO NOT STOP ANY OF YOUR OTHER PRESCRIPTION MEDICATIONS PRIOR TO SURGERY EXCEPT THE FOLLOWING Hold all vitamins and supplements for 3 days per anesthesiologist. Medications to discontinue per physician NONE Date to take last dose____NONE Please no make-up, nail nepalese, hairspray, perfume, deodorant, or body powder the day of surgery.? No jewelry (including any body piercings) or valuables the day of surgery, leave them at home.? Please take a shower or bath the night before, or the morning of, surgery with an antibacterial soap.? Wear comfortable, loose fitting clothing.? - Jewelry must be removed prior to entering the operating room.? Rings and piercings that are not removed may be cut off. - The hospital will not accept responsibility for valuables.? - Please leave all valuables, including medications, at home the day of surgery. If you are going home after surgery, a licensed flatbed company driver must drive you home.? - NO public transportation without another adult if you receive anesthesia. - We recommend that an adult stay with you for 24 hours following discharge. - We also recommend that you do not drive, make important decision, drink alcoholic beverages, or take any drugs that were not prescribed by your health care provider for at least 24 hours after your discharge time. Follow any additional instructions given to you from your surgeon. Telephone instructions given to __OSCAR and asked if any additional questions and then verbalized understanding. Patient advised to call surgeon office or pre surgery nurse liaison [phone] if any additional questions.
[2025-02-03] VITALS (7 sets, daily range): BP systolic 141–166; BP diastolic 93–111; PULSE 88–96; RESP 12–17; TEMP 36.8; O2SAT 95–98; BMI 37.9
--- OUTSIDE RECORDS SUMMARY | 2025-02-03 02:17 | XMS_ITS | Clinical Summary ---
Author Organization [facility] Address [address] [place] [address] Care Team Providers Care Elevator Serviceman Name Role Phone Unavailable Primary Care Provider [...]
--- NOTE | 2025-02-03 08:43 | WPDHPUPDATE1 ---
History and Physical Update Update Date/Time: 02/03/25 08:43 History and Physical has been reviewed, including an updated exam of the patient. There are NO changes in the patient's condition. Risks, benefits, and alternatives have been discussed and questions answered. Patient agrees to proceed with procedure.
[2025-02-03] MEDS: CELECOXIB 200 MG CAPSULE PO (10:10)
[2025-02-03] MEDS: ACETAMINOPHEN 500 MG TABLET 1000 MG PO (10:10)
--- NOTE | 2025-02-03 10:15 | P.PNAN_ITS ---
Anes - Initial Pre Proc Eval Procedure: Operation Date: 02/03/25 11:00 Proposed Procedures p Left Knee Arthroscopy - Fahad Jacques MD Date/Time: 02/03/25 10:15 Surgeon: Fahad Jacques MD Pre Op Diagnosis: Lt Knee Medial Meniscus Tear Patient Data Age: 54 Gender: M Height: 1.75 m Weight: 113.6 kg Allergies Allergy/AdvReac Type Severity Reaction Status Date / Time No Known Allergies Allergy Verified 02/02/25 09:20 Home Medications ?Medication ?Instructions ?Recorded ?Confirmed ?Type carbamazepine 200 mg tablet 600 mg PO Q12H 06/20/19 02/02/25 History lancets 33 gauge (OneTouch Delica #100 ea 09/02/20 02/02/25 Rx Lancets) aspirin 81 mg tablet,delayed 81 mg PO DAILY #90 tabs 07/21/21 02/02/25 Rx release (Adult Aspirin Regimen) ketoconazole 2 % topical cream 1 applic topical BID #60 grams 12/09/21 02/02/25 Rx blood sugar diagnostic (Blood #100 ea 02/07/22 02/02/25 Rx Glucose Test strips) triamcinolone acetonide 0.5 % 1 applic topical TID #15 grams 11/29/22 02/02/25 Rx topical ointment dapagliflozin propanediol 10 mg See Rx Instructions .Route 12/05/22 02/02/25 Rx tablet (Farxiga) .COMPLEX #90 tabs fenofibrate 160 mg tablet See Rx Instructions .Route 01/09/24 02/02/25 Rx .COMPLEX #90 tabs meclizine 25 mg tablet 25 mg PO BID PRN dizziness #60 tabs 04/15/24 02/02/25 Rx omeprazole 40 mg capsule,delayed 40 mg PO BID #180 caps 05/27/24 02/02/25 Rx release levothyroxine 100 mcg tablet 100 mcg PO DAILY #90 tabs 06/04/24 02/02/25 Rx losartan 100 mg tablet See Rx Instructions .Route 08/05/24 02/02/25 Rx .COMPLEX #90 tabs semaglutide 2 mg/dose (8 mg/3 mL) 2 mg (0.75 mL) subcut WEEKLY #3 mL 10/01/24 02/02/25 Rx subcutaneous pen injector blood sugar diagnostic (OneTouch #100 ea 10/17/24 02/02/25 Rx Verio test strips) blood-glucose meter (OneTouch #1 ea 10/17/24 02/02/25 Rx Verio Flex Meter) fexofenadine 180 mg tablet 180 mg PO DAILY #90 tabs 10/27/24 02/02/25 Rx hydrochlorothiazide 12.5 mg tablet 12.5 mg PO DAILY #90 tabs 11/24/24 02/02/25 Rx atorvastatin 10 mg tablet See Rx Instructions .Route 01/06/25 02/02/25 Rx .COMPLEX #90 tabs tadalafil 5 mg tablet (Cialis) 5 mg PO DAILY #90 tabs 01/22/25 02/02/25 Rx chlorhexidine gluconate 4 % 1 applic topical ONCE #237 mL 01/27/25 02/02/25 Rx topical liquid (Hibiclens) hydrocodone 5 mg-acetaminophen 325 1 tablet PO Q12H PRN pain #20 tabs 02/03/25 Rx mg tablet Laboratory Tests 02/03/25 09:31 Carbamazepine Pending Patient hx anesthesia problems: none Family hx anesthesia problems: none Results Review: All pre-operative results and documents have been reviewed as part of the pre- operative evaluation. FORMERLY [facility], [facility] Past Medical History Medical History Allergic rhinitis Erectile dysfunction Pacemaker Hypothyroidism Diabetes GERD (gastroesophageal reflux disease) Dyslipidemia Hypertension Epilepsy Surgical History Surgical History S/P right rotator cuff repair Family History Family History Mother Family history of diabetes mellitus in first degree relative Diabetes mellitus Sibling Diabetes mellitus Other Hypertension Social History Social History Social History: Smoking status: Never smoker Second hand tobacco smoke exposure: No Alcohol intake: current Alcohol use details: occasionally Substance use: never Substance use type: does not use Living arrangements: with family Occupation/Education: retired Gender identity (if verbalized by the patient): Male Sexual Orientation (if Verbalized by the Patient): Straight or Heterosexual Spiritual care concerns: No Anes - Eval Final PreProcedure Day of Procedure 02/03/25 10:15 Patient weight: obese Lungs: normal air movement Airway: Mallampati scale class II Neurological: alert and oriented Last oral intake: >/= 8 hours ASA classification: III Emergent: no Anesthetic plan: proceed Anesthesia type and monitoring: general LMA and standard monitoring Results Review: All pre-operative results and documents have been reviewed as part of the pre- operative evaluation. Hyperlipidemia, HTN, hypothyroidism, DM fsbs 104, remote hx of seizures and has been taking antiseizure meds. Informed Consent: The patient's anesthetic plan and its attendant risks and benefits were discussed with the patient/family/POA. Questions were solicited and answers provided to the satisfaction of the patient/family/POA.
[2025-02-03] MEDS: ceFAZolin 2 GM/D5W 50 ML 2 GM/50 ML BAG IVPB (10:41)
[2025-02-03] MEDS: LACTATED RINGERS 1,000 ML 30 ML IV CONT (10:43)
[2025-02-03] MEDS: BUPivacaine HCL 0.5% 10 ML AMP 30 ML INFILTRATE (10:59)
--- NOTE | 2025-02-03 11:56 | W.PM.PROC2 ---
Procedure Note - Detailed Date of Procedure 02/03/25 Pre-op Diagnosis Lt Knee Medial Meniscus Tear Post-op Diagnosis Same Procedure Performed LEFT KNEE SCOPE Surgeon Fahad Jacques MD Anesthesia General Description of Procedure PATIENT WAS TAKEN TO THE OR. LEFT LEG WAS PREPPED AND DRAPED STERILE. TROCARS WERE PLACED IN THE USUAL FASHION. CAMERA WAS INTRODUCED. THERE WAS CHONDROMALACIA TO THE PATELLA FEMORAL JOINT. THERE WAS A LOT OF SYNOVITIS IN ALL COMPARTMENTS. THE MEDIAL COMPARTMENT SHOWED CHONDROMALACIA TO THE MEDIAL FEMORAL CONDYLE. A SHAVER WAS USED TO PREFORM A CHONDROPLASTY. SYNOVECTOMY WAS PREFORMED WELL. THERE WAS A MEDIAL MENISCUS TEAR IN THE WHITE ZONE. THE TEAR WAS RESECTED WITH A BITER AND A SHAVER DOWN TO A SMOOTH BASE. THE ACL WAS INTACT. THE LATERAL MENISCUS WAS NOT TORN. THE LAT COMPARTMENT HAD MINIMAL CHONDROMALACIA. THE PATELLO FEMORAL JOINT UNDERWENT CHONDROPLASTY. THERE WAS GRADE 2 CHONDROMALACIA IN PART OF THE TROCHLEA AND PART OF THE PATELLA. SYNOVECTOMY WAS PREFORMED IN THE SUPERIOR MEDIAL AND PATELLO FEMORAL COMPARTMENT. THE WOUNDS WERE APPROXIMATED WITH 4.0 NYLON. STERILE DRESSING WAS APPLIED. PATIENT WAS EXTUBATED. Estimated Blood Loss 5 Complications No immediate complications Condition Stable Disposition PACU
[2025-02-04 11:08] LABS: Carbamazepine (Tegretol) 14.5 ug/mL (4.0-12.0)
== END 2025-02-03 13:15 | disposition home or self-care (01) ==
PROVIDERS: Anesthesiology; PCP Family Medicine; Visit Provider Orthopaedic Surgery
PROC: (CPT 29870; principal; 2025-02-03 11:00)
DX: S83.242A Other tear of medial meniscus, current injury, left knee, initial encounter (principal); M65.862 Other synovitis and tenosynovitis, left lower leg; M94.262 Chondromalacia, left knee; E03.9 Hypothyroidism, unspecified; E11.9 Type 2 diabetes mellitus without complications; E78.5 Hyperlipidemia, unspecified; I10 Essential (primary) hypertension; K21.9 Gastro-esophageal reflux disease without esophagitis; G40.909 Epilepsy, unspecified, not intractable, without status epilepticus; X58.XXXA Exposure to other specified factors, initial encounter; N52.9 Male erectile dysfunction, unspecified; E66.9 Obesity, unspecified; Z68.38 Body mass index [BMI] 38.0-38.9, adult; Z79.82 Long term (current) use of aspirin; Z79.84 Long term (current) use of oral hypoglycemic drugs; Z79.891 Long term (current) use of opiate analgesic; Z79.85 Long-term (current) use of injectable non-insulin antidiabetic drugs; Z98.890 Other specified postprocedural states; Z95.0 Presence of cardiac pacemaker
CPT/HCPCS: 29881; 29876; 80156; 82948; A9270; J0690; J1100; J2405; J2704; J3010; J7120

== ENCOUNTER 2025-03-04 03:08 | Day surgery (SDC) | payer OTHER, MEDICARE, SELFPAY ==
[2025-02-18 11:01] VITALS: BMI 37.0
--- OUTSIDE RECORDS SUMMARY | 2025-03-04 03:18 | XMS_ITS | Clinical Summary ---
Author Organization [facility] Address [address] [place] [address] Care Team Providers Care Foundry Melt Supervisor Name Role Phone Unavailable Primary Care Provider [...]
[2025-03-04 07:43] VITALS: BP 147/103; PULSE 96; RESP 20; TEMP 36.2; O2SAT 97; BMI 38.0
[2025-03-04] MEDS: LACTATED RINGERS 1,000 ML 150 ML IV CONT (07:45)
--- NOTE | 2025-03-04 08:01 | WPDANESEPPF ---
Anes - Initial Pre Proc Eval Procedure: Operation Date: 03/04/25 08:45 Proposed Procedures p Esophagogastroduodenoscopy - Suleiman Gregorio MD Date/Time: 03/04/25 08:01 Surgeon: Suleiman Gregorio MD Pre Op Diagnosis: Chronic cough, GERD Patient Data Age: 54 Gender: M Height: 1.75 m Weight: 117 kg Last Vital Signs Temp 36.2 C L 03/04/25 07:43 Pulse 96 03/04/25 07:43 Resp 20 03/04/25 07:43 BP 147/103 H 03/04/25 07:43 Pulse Ox 97 03/04/25 07:43 O2 Del Method Room Air 03/04/25 07:43 Allergies Allergy/AdvReac Type Severity Reaction Status Date / Time No Known Allergies Allergy Verified 03/04/25 07:41 Home Medications ?Medication ?Instructions ?Recorded ?Confirmed ?Type carbamazepine 200 mg tablet 600 mg PO Q12H 06/20/19 03/04/25 History lancets 33 gauge (OneTouch Delica #100 ea 09/02/20 02/16/25 Rx Lancets) aspirin 81 mg tablet,delayed 81 mg PO DAILY #90 tabs 07/21/21 03/04/25 Rx release (Adult Aspirin Regimen) blood sugar diagnostic (Blood #100 ea 02/07/22 02/16/25 Rx Glucose Test strips) fenofibrate 160 mg tablet See Rx Instructions .Route 01/09/24 03/04/25 Rx .COMPLEX #90 tabs meclizine 25 mg tablet 25 mg PO BID PRN dizziness #60 tabs 04/15/24 02/18/25 Rx omeprazole 40 mg capsule,delayed 40 mg PO BID #180 caps 05/27/24 03/04/25 Rx release losartan 100 mg tablet See Rx Instructions .Route 08/05/24 03/04/25 Rx .COMPLEX #90 tabs semaglutide 2 mg/dose (8 mg/3 mL) 2 mg (0.75 mL) subcut WEEKLY #3 mL 10/01/24 02/18/25 Rx subcutaneous pen injector blood sugar diagnostic (OneTouch #100 ea 10/17/24 02/16/25 Rx Verio test strips) blood-glucose meter (OneTouch #1 ea 10/17/24 02/16/25 Rx Verio Flex Meter) fexofenadine 180 mg tablet 180 mg PO DAILY #90 tabs 10/27/24 03/04/25 Rx hydrochlorothiazide 12.5 mg tablet 12.5 mg PO DAILY #90 tabs 11/24/24 03/04/25 Rx atorvastatin 10 mg tablet See Rx Instructions .Route 01/06/25 03/04/25 Rx .COMPLEX #90 tabs tadalafil 5 mg tablet (Cialis) 5 mg PO DAILY #90 tabs 01/22/25 02/18/25 Rx levothyroxine 100 mcg tablet See Rx Instructions .Route 03/02/25 03/04/25 Rx .COMPLEX #30 tabs Patient hx anesthesia problems: none Family hx anesthesia problems: none Results Review: All pre-operative results and documents have been reviewed as part of the pre-operative evaluation. [facility] Past Medical History Medical History Allergic rhinitis Erectile dysfunction Pacemaker Hypothyroidism Diabetes GERD (gastroesophageal reflux disease) Dyslipidemia Hypertension Epilepsy Surgical History Surgical History S/P right rotator cuff repair Family History Family History Mother Family history of diabetes mellitus in first degree relative Diabetes mellitus Sibling Diabetes mellitus Other Hypertension Social History Social History Social History: Smoking status: Never smoker Second hand tobacco smoke exposure: No Alcohol intake: current Alcohol use details: occasionally Substance use: never Substance use type: does not use Living arrangements: with family Occupation/Education: retired Gender identity (if verbalized by the patient): Male Sexual Orientation (if Verbalized by the Patient): Straight or Heterosexual Spiritual care concerns: No Anes - Eval Final PreProcedure Day of Procedure 03/04/25 08:01 Patient weight: obese Heart: regular rate and rhythm Lungs: clear to auscultation Airway: Mallampati scale class II Neurological: alert and oriented Last oral intake: >/= 8 hours ASA classification: III Emergent: no Anesthetic plan: proceed Anesthesia type and monitoring: general GIVS and standard monitoring Results Review: All pre-operative results and documents have been reviewed as part of the pre-operative evaluation. Informed Consent: The patient's anesthetic plan and its attendant risks and benefits were discussed with the patient/family/POA. Questions were solicited and answers provided to the satisfaction of the patient/family/POA.
--- NOTE | 2025-03-04 08:22 | PM.HPGS ---
History of Present Illness History of Present Illness Consent: Risks, benefits, and alternatives have been discussed and questions answered. Patient agrees to proceed with procedure. Chief complaint: Chronic cough, GERD Narrative: Navdeep Guzman is a 54 year old male here for first egd with gerd on ppi but sometimes has to take tums Review of Systems Review of Systems: All systems reviewed & are unremarkable except as noted in HPI and below PMFSH Past Medical History Medical History Allergic rhinitis Erectile dysfunction Pacemaker Hypothyroidism Diabetes GERD (gastroesophageal reflux disease) Dyslipidemia Hypertension Epilepsy Surgical History Surgical History S/P right rotator cuff repair Family History Family History Mother Family history of diabetes mellitus in first degree relative Diabetes mellitus Sibling Diabetes mellitus Other Hypertension Social History Social History Social History: Smoking status: Never smoker Second hand tobacco smoke exposure: No Alcohol intake: current Alcohol use details: occasionally Substance use: never Substance use type: does not use Living arrangements: with family Occupation/Education: retired Gender identity (if verbalized by the patient): Male Sexual Orientation (if Verbalized by the Patient): Straight or Heterosexual Spiritual care concerns: No Meds Home Medications and Allergies Home Medications ?Medication ?Instructions ?Recorded ?Confirmed ?Type carbamazepine 200 mg tablet 600 mg PO Q12H 06/20/19 03/04/25 History lancets 33 gauge (OneTouch Delica #100 ea 09/02/20 02/16/25 Rx Lancets) aspirin 81 mg tablet,delayed 81 mg PO DAILY #90 tabs 07/21/21 03/04/25 Rx release (Adult Aspirin Regimen) blood sugar diagnostic (Blood #100 ea 02/07/22 02/16/25 Rx Glucose Test strips) fenofibrate 160 mg tablet See Rx Instructions .Route 01/09/24 03/04/25 Rx .COMPLEX #90 tabs meclizine 25 mg tablet 25 mg PO BID PRN dizziness #60 tabs 04/15/24 02/18/25 Rx omeprazole 40 mg capsule,delayed 40 mg PO BID #180 caps 05/27/24 03/04/25 Rx release losartan 100 mg tablet See Rx Instructions .Route 08/05/24 03/04/25 Rx .COMPLEX #90 tabs semaglutide 2 mg/dose (8 mg/3 mL) 2 mg (0.75 mL) subcut WEEKLY #3 mL 10/01/24 02/18/25 Rx subcutaneous pen injector blood sugar diagnostic (OneTouch #100 ea 10/17/24 02/16/25 Rx Verio test strips) blood-glucose meter (OneTouch #1 ea 10/17/24 02/16/25 Rx Verio Flex Meter) fexofenadine 180 mg tablet 180 mg PO DAILY #90 tabs 10/27/24 03/04/25 Rx hydrochlorothiazide 12.5 mg tablet 12.5 mg PO DAILY #90 tabs 11/24/24 03/04/25 Rx atorvastatin 10 mg tablet See Rx Instructions .Route 01/06/25 03/04/25 Rx .COMPLEX #90 tabs tadalafil 5 mg tablet (Cialis) 5 mg PO DAILY #90 tabs 01/22/25 02/18/25 Rx levothyroxine 100 mcg tablet See Rx Instructions .Route 03/02/25 03/04/25 Rx .COMPLEX #30 tabs Allergies Allergy/AdvReac Type Severity Reaction Status Date / Time No Known Allergies Allergy Verified 03/04/25 07:41 Vital Signs Vital Signs - 24 hr 03/04/25 07:43 Temperature 97.1 F L Pulse Rate 96 Respiratory Rate 20 Blood Pressure 147/103 H Pulse Oximetry 97 Oxygen Delivery Room Air Exam Const: General: comfortable and no acute distress HENMT: Face/Nose/Sinus: Normal nares present Eyes: General: appearance normal, both eyes and all related structures Neck: Neck: no JVD Resp: Auscultation: clear to auscultation bilaterally Cardio: Rate: regular rate Rhythm: regular rhythm GI: Inspection: non-distended GI Palp: Yes Soft to palpation Skin: General skin exam: normal color Neuro: Speech: normal speech Extrem: General: normal to inspection Psych: Mental Status: mental status grossly normal Assessment and Plan Assessment and plan (1) GERD (gastroesophageal reflux disease): Qualifiers: Esophagitis presence: without esophagitis Qualified Code(s): K21.9 - Gastro-esophageal reflux disease without esophagitis Code(s): K21.9 - Gastro-esophageal reflux disease without esophagitis Status: Acute Assessment and Plan: egd with bx
--- NOTE | 2025-03-04 08:36 | S_PTH ---
PATIENT: Navdeep Guzman LOC: [facility] Lin#:[id number] AGE/SX: 54/M ROOM: RE03/04/[address]: Suleiman Gregorio MD : 1970 BED: DIS: 03/04/2025 SPEC #: [id number] RECD: 03/04/25 11:33 STATUS: LULU RERegis #: [id number] ARMANDO: 03/04/25 08:[address]: Suleiman Gregorio DEPT: [facility] Surgical RECD BY: Jadyn Flynn ENTERED: 03/04/25 11:34 SP TYPE: Surgical OTHR DR: Georges Hurtado MD Tissues: A - Esophageal Biopsy B - Gastric Biopsy Procedures: Hematoxylin and Eosin Stain Gross and Microscopic Level 4
[2025-03-04 08:43] VITALS: BP 117/74; PULSE 94; RESP 20; O2SAT 97
[2025-03-04 08:53] VITALS: BP 121/68; PULSE 88; RESP 20; O2SAT 96
[2025-03-04 09:03] VITALS: BP 141/93; PULSE 89; RESP 22; O2SAT 97
== END 2025-03-04 09:14 | disposition home or self-care (01) ==
PROVIDERS: PCP Family Medicine; Referring Provider Family Medicine; Visit Provider Internal Medicine Gastroenterology
PROC: 0DJ08ZZ Inspection of Upper Intestinal Tract, Via Natural or Artificial Opening Endoscopic (ICD-10-PCS; CPT 43239; principal; 2025-03-04 08:45)
DX: K21.9 Gastro-esophageal reflux disease without esophagitis (principal); E78.5 Hyperlipidemia, unspecified; I10 Essential (primary) hypertension; N52.9 Male erectile dysfunction, unspecified; E03.9 Hypothyroidism, unspecified; E11.9 Type 2 diabetes mellitus without complications; G40.909 Epilepsy, unspecified, not intractable, without status epilepticus; E66.9 Obesity, unspecified; Z68.38 Body mass index [BMI] 38.0-38.9, adult; Z79.82 Long term (current) use of aspirin; Z79.85 Long-term (current) use of injectable non-insulin antidiabetic drugs; Z98.890 Other specified postprocedural states; Z95.0 Presence of cardiac pacemaker
CPT/HCPCS: 43239; 82948; 88305; J2003; J2704; J7120